=== PATIENT | female | born 1960 | race Two or more races ===

== ENCOUNTER 2018-04-27 13:52 | Emergency (ER) | payer SELFPAY ==
[2018-04-27 14:13] VITALS: BP 124/80; PULSE 82; RESP 18; TEMP 98.2; O2SAT 99
--- NOTE | 2018-04-27 15:16 | ED PDOC ---
HPI: General Adult Time Seen by Provider: 04/27/18 14:43 Chief Complaint (Nursing): Medical Clearance Chief Complaint (Provider): Drug Test History Per: Patient History/Exam Limitations: no limitations (Pt presents to the ED wishing for a voluntary Urine Drug Screen for her landlord; urine was ordered, however the patient refused to wait for results and departed the ED because she was hungry) Past Medical History Reviewed: Historical Data, Nursing Documentation, Vital Signs Vital Signs: Last Vital Signs Temp 98.2 F 04/27/18 14:09 Pulse 82 04/27/18 14:09 Resp 18 04/27/18 14:09 BP 124/80 04/27/18 14:09 Pulse Ox 99 04/27/18 14:09 - Family History Family History: States: Unknown Family Hx - Allergies Allergies/Adverse Reactions: Allergies Allergy/AdvReac Type Severity Reaction Status Date / Time No Known Allergies Allergy Verified 04/27/18 14:09 Review of Systems ROS Statement: Except As Marked, All Systems Reviewed And Found Negative Physical Exam - Reviewed Nursing Documentation Reviewed: Yes Vital Signs Reviewed: Yes - Physical Exam Appears: Positive for: Well, Non-toxic Head Exam: Positive for: ATRAUMATIC, NORMAL INSPECTION Skin: Positive for: Normal Color, Warm, Dry Eye Exam: Positive for: Normal appearance ENT: Positive for: Normal ENT Inspection Neck: Positive for: Normal Cardiovascular/Chest: Positive for: Regular Rate, Rhythm Respiratory: Positive for: Normal Breath Sounds. Negative for: Decreased Breath Sounds, Accessory Muscle Use, Crackles, Rales, Rhonchi, Stridor, Wheezing, Respiratory Distress Pulses-Carotid (L): 2+ Pulses-Carotid (R): 2+ Pulses-Post. Tibialis (L): 2+ Pulses-Post. Tibialis (R): 2+ Neurologic/Psych: Positive for: Alert, Oriented - ECG O2 Sat by Pulse Oximetry: 99 Disposition - Clinical Impression Clinical Impression: Encounter for blood-alcohol and blood-drug test - Disposition Disposition: Left W/O Treatment Disposition Time: 15:00 Condition: STABLE Instructions: General (DC) Forms: [employer] (Kosovan)
== END 2018-04-27 15:00 | disposition left against medical advice (07) ==
LOC: H.ER 13:52
DX: Z00.00 Encounter for general adult medical examination without abnormal findings (principal)